=== PATIENT | female | born 1980 | race Caucasian/White ===

== ENCOUNTER 2018-05-24 12:10 | Emergency (ER) | payer BC, SELFPAY ==
[2018-05-24 12:17] VITALS: BP 127/75; PULSE 88; RESP 16; TEMP 36.7; O2SAT 97
[2018-05-24 12:24] LABS: Bilirubin Negative (Negative); Blood Negative (Negative); Clarity Clear; Glucose Negative (Negative); Ketones Negative (Negative); Leukocyte Esterase Negative (Negative); Nitrite Negative (Negative); Urobilinogen 0.2 EU/dL (Up TO 0.2); pH 5.5 (5-8)
--- NOTE | 2018-05-24 12:25 | W.ED.GENAD ---
Discharge Plan Disposition Patient Disposition: HOME Condition: Good Discharge Details Chief Complaint: Urinary Clinical Impression: Dysuria ED Provider: Jeff Leon Home Meds and New Rx's Prescriptions: New ciprofloxacin HCl 500 mg tablet 500 mg PO BID Qty: 14 RF: 0 Discharge Instructions Instructions: Dysuria (ED) Additional Instructions: take the pyridum that was prescribed to you finish the macrobid. If still symptomatic saturday start taking the ciprofloxacin follow up with [facility] if you develop high fevers or severe abdominal pain or back pain return to the emergency department Medical Decision Making 37 yo female comes in with dysuria. She was in [place] and had burning with urination 4 days ago and was placed on macrobid per pt using a telehealth provider, no urine sample was obtained. She states she was feeling better but again started to have burning with urination today so came here. No severe back pain or fevers. Will check UA and urine hcg. She has no fevers or severe back pain to suggest pyelo. She has no vaginal bleeding or d/c per pt so do not feel pelvic indicated at this time ua unremarkable. I did order a urine culture and she is going to finish her macrobid that ends tomorrow and start the pyridium that she was prescribed as well. If she is still symptomatic Saturday she will start cipro. Return precautions given and she is going to arrange f/u with women's wellness Differential Diagnosis uti, cystitis, Lab Data Lab results reviewed: Yes I reviewed the patient's lab results. HPI General Mode of arrival: ambulatory. Date/Time Provider Initiated Documentation: 05/24/18 12:16. Limitations to Documentation: no limitations. Information obtained by: patient. History of Present Illness 37 year old F presents to the emergency department with the chief complaint of dysuria, described as mild, with intensity rated at 2. Quality is described as burning, and it has been constant. No relieving factors improve symptom(s), No exacerbating factors reported . Patient notes no other symptoms.. Related Data Home Medications Medication Instructions Recorded Confirmed ciprofloxacin HCl 500 mg PO BID #14 tab 05/24/18 Previous Rx's Medication Instructions Recorded ciprofloxacin HCl 500 mg PO BID #14 tab 05/24/18 Allergies Allergy/AdvReac Type Severity Reaction Status Date / Time No Known Drug Allergies Allergy Unverified 04/17/17 10:19 General Stated Complaint: Urinary ANNA: 4 Review of Systems Review of Systems All systems reviewed & are unremarkable except as noted in HPI and below Constitutional Denies chills, Denies fever(s) and Denies weakness ENT Denies change in voice Cardiovascular Denies chest pain and Denies dyspnea Respiratory Denies dyspnea Gastrointestinal Denies abdominal pain, Denies nausea and Denies vomiting Integumentary/Breasts Denies rash Neurologic Denies weakness Psychiatric Denies depression Allergic/Immunologic Denies urticaria PFSH Social History Smoking/Tobacco Use Status: Never Exam Const General: no acute distress Orientation: alert HENMT Head: normal to inspection Ears: external ears normal General nose exam: external nose normal Mouth: moist mucous membranes Eyes General: appearance normal, both eyes and all related structures Neck Neck: normal visual inspection Resp Effort & Inspection: normal respiratory effort and able to speak in complete sentences Cardio Rate: regular rate Skin General skin exam: no rashes or lesions noted Neuro General: alert and oriented x3 Extrem General: normal to inspection Psych Mental Status: mental status grossly normal Course Vital Signs Temperature 36.7 C 05/24/18 12:17 Pulse 88 05/24/18 12:17 Respiratory Rate 16 05/24/18 12:17 Blood Pressure 127/75 05/24/18 12:17 Pulse Oximetry 97 05/24/18 12:17 Temperature 36.7 C 05/24/18 12:17 Pulse 88 05/24/18 12:17 Respiratory Rate 16 05/24/18 12:17 Respiratory Effort 05/24/18 12:20 Blood Pressure 127/75 05/24/18 12:17 Pulse Oximetry 97 05/24/18 12:17 Oxygen Delivery Method Room Air 05/24/18 12:17 Oxygen Flow Rate 0 05/24/18 12:17
--- NOTE | 2018-05-24 12:28 | ED.GENADUL_ITS ---
Discharge Plan Disposition Patient Disposition: HOME Condition: Good Discharge Details Chief Complaint: Urinary Clinical Impression: Dysuria ED Provider: Jeff Leon Home Meds and New Rx's Prescriptions: New ciprofloxacin HCl 500 mg tablet 500 mg PO BID Qty: 14 RF: 0 Discharge Instructions Instructions: Dysuria (ED) Additional Instructions: take the pyridum that was prescribed to you finish the macrobid. If still symptomatic saturday start taking the ciprofloxacin follow up with women's wellness if you develop high fevers or severe abdominal pain or back pain return to the emergency department Medical Decision Making 37 yo female comes in with dysuria. She was in [place] and had burning with urination 4 days ago and was placed on macrobid per pt using a telehealth provider, no urine sample was obtained. She states she was feeling better but again started to have burning with urination today so came here. No severe back pain or fevers. Will check UA and urine hcg. She has no fevers or severe back pain to suggest pyelo. She has no vaginal bleeding or d/c per pt so do not feel pelvic indicated at this time ua unremarkable. I did order a urine culture and she is going to finish her macrobid that ends tomorrow and start the pyridium that she was prescribed as well. If she is still symptomatic Saturday she will start cipro. Return precautions given and she is going to arrange f/u with women's wellness Differential Diagnosis uti, cystitis, Lab Data Lab results reviewed: Yes I reviewed the patient's lab results. HPI General Mode of arrival: ambulatory . Date/Time Provider Initiated Documentation: 05/24/18 12:16 . Limitations to Documentation: no limitations . Information obtained by: patient . History of Present Illness 37 year old F presents to the emergency department with the chief complaint of dysuria, described as mild, with intensity rated at 2. Quality is described as burning, and it has been constant. No relieving factors improve symptom(s), No exacerbating factors reported . Patient notes no other symptoms.. Related Data Home Medications Medication Instructions Recorded Confirmed ciprofloxacin HCl 500 mg PO BID #14 tab 05/24/18 Previous Rx's Medication Instructions Recorded ciprofloxacin HCl 500 mg PO BID #14 tab 05/24/18 Allergies Allergy/AdvReac Type Severity Reaction Status Date / Time No Known Drug Allergies Allergy Unverified 04/17/17 10:19 General Stated Complaint: Urinary ANNA: 4 Review of Systems Review of Systems All systems reviewed & are unremarkable except as noted in HPI and below Constitutional Denies chills, Denies fever(s) and Denies weakness ENT Denies change in voice Cardiovascular Denies chest pain and Denies dyspnea Respiratory Denies dyspnea Gastrointestinal Denies abdominal pain, Denies nausea and Denies vomiting Integumentary/Breasts Denies rash Neurologic Denies weakness Psychiatric Denies depression Allergic/Immunologic Denies urticaria PFSH Social History Smoking/Tobacco Use Status: Never Exam Const General: no acute distress Orientation: alert HENMT Head: normal to inspection Ears: external ears normal General nose exam: external nose normal Mouth: moist mucous membranes Eyes General: appearance normal, both eyes and all related structures Neck Neck: normal visual inspection Resp Effort & Inspection: normal respiratory effort and able to speak in complete sentences Cardio Rate: regular rate Skin General skin exam: no rashes or lesions noted Neuro General: alert and oriented x3 Extrem General: normal to inspection Psych Mental Status: mental status grossly normal Course Vital Signs Temperature 36.7 C 05/24/18 12:17 Pulse 88 05/24/18 12:17 Respiratory Rate 16 05/24/18 12:17 Blood Pressure 127/75 05/24/18 12:17 Pulse Oximetry 97 05/24/18 12:17 Temperature 36.7 C 05/24/18 12:17 Pulse 88 05/24/18 12:17 Respiratory Rate 16 05/24/18 12:17 Respiratory Effort 05/24/18 12:20 Blood Pressure 127/75 05/24/18 12:17 Pulse Oximetry 97 05/24/18 12:17 Oxygen Delivery Method Room Air 05/24/18 12:17 Oxygen Flow Rate 0 05/24/18 12:17
== END 2018-05-24 13:20 | disposition home or self-care (01) ==
LOC: ER 13:20
PROVIDERS: Emergency Provider Emergency Medicine
DX: R30.0 Dysuria (principal)
CPT/HCPCS: 81025; 99283; 81003; 87086

== ENCOUNTER 2018-09-05 12:57 | Outpatient (CLI) | payer BC, SELFPAY ==
[2018-09-05 13:38] LABS: HCT 40.5 % (36.0-46.0); HGB 13.2 g/dL (12.0-15.5); Mean Corp. HGB Concentration 32.6 g/dL (32.0-36.0); Mean Corpuscular Volume 85.8 fL (80-95); Mean Platelet Volume 10.7 fL (8.0-11.0); Platelet Count 256 x1000/uL (130-400); RBC 4.72 m/cumm (4.00-5.20); RBC Distribution Width 12.9 % (11.7-14.6); White Blood Cell Count 5.64 k/cumm (4.4-10.8)
[2018-09-05 14:22] LABS: Iron 80 ug/dL (50-175); Total Iron Binding Capacity 283 ug/dL (250-450); Transferrin Sat 28 % (15-50)
[2018-09-05 14:51] LABS: ALT 18 U/L (12-78); AST 12 U/L (15-37); Alkaline Phosphatase 54 U/L (46-116); Anion Gap 5.6 mmol/L (3-11); BUN 20 mg/dL (7-18); Bilirubin, Total 0.9 mg/dL (0.2-1.0); CO2 31.4 mmol/L (21.0-32.0); Calcium 9.2 mg/dL (8.5-10.1); Chloride 102 mmol/L (98-107); Ferritin 46 ng/mL (8-388); Glucose 112 mg/dL (70-100); Potassium 4.1 mmol/L (3.5-5.1); Sodium 139 mmol/L (136-145); TSH (W/Ref FT4) 1.26 uIU/mL (0.358-3.74); Total Protein 7.4 g/dL (6.4-8.2); Vitamin B12 494 pg/mL (193-986)
== END 2018-09-05 13:17 ==
PROVIDERS: PCP Nurse Practitioner; Visit Provider Nurse Practitioner
DX: R53.83 Other fatigue (principal); L65.9 Nonscarring hair loss, unspecified; I10 Essential (primary) hypertension; D64.9 Anemia, unspecified
CPT/HCPCS: 36415; 80053; 85027; 82607; 82728; 83540; 83550; 84443

== ENCOUNTER 2019-01-30 10:10 | Outpatient (CLI) | payer BC, SELFPAY ==
--- NOTE | 2019-01-30 15:31 | DI.MAMMO_ITS ---
SYMPTOMS/DIAGNOSIS: SCREENING, FIBROCYSTIC BREASTS, CYSTIC MASTOPATHY OF BOTH BREASTS, Z12.31, N60.12, N60.11 MAMMOGRAMS: Mammograms were interpreted according to the usual protocol including computer analysis with CAD system, tomosynthesis and C view imaging. Comparison is with the prior examinations. No suspicious masses or microcalcifications are seen. There is no definite evidence of malignancy. IMPRESSION: Negative mammogram. Routine screening is recommended. Category 1, breast density C. MQSA ASSESSMENT OF FINDINGS: Negative. Category 1. Patient will receive a letter notifying them of these results. Bi-RADS category C. The breasts are heterogeneously dense, which may obscure small masses.
== END 2019-01-30 10:30 ==
PROVIDERS: PCP Nurse Practitioner; Visit Provider Nurse Practitioner
DX: N60.11 Diffuse cystic mastopathy of right breast (principal); N60.12 Diffuse cystic mastopathy of left breast; Z12.31 Encounter for screening mammogram for malignant neoplasm of breast
CPT/HCPCS: 77063; 77067

== ENCOUNTER 2019-04-09 09:14 | Outpatient (REF) | payer BC, SELFPAY ==
--- NOTE | 2019-04-09 09:00 | PAPFT_PTH ---
PATIENT: MELISSA WEIR LOC: [facility] U#:[id number] AGE/SX: 38/F ROOM: RE04/09/[address]: Kim Morataya APRN : 1980 BED: DIS: 04/09/2019 SPEC #: [id number] RECD: 04/09/19 13:01 STATUS: DUSTY MELCHOR #: [id number] YAJAIRA: 04/09/19 09:[address]: Kim Morataya DEPT: [facility] Cytology RECD BY: Yaritza Vargas Tissues: 1 - CX/ENDOCX FOR PAP SMEARS Procedures: PAP THIN PREP/UVM Screening HPV DNA PROBE Comments: [id number]
== END 2019-04-09 09:34 ==
LOC: LBN 09:14
PROVIDERS: PCP Nurse Practitioner; Visit Provider Nurse Practitioner
DX: Z12.4 Encounter for screening for malignant neoplasm of cervix (principal); Z11.51 Encounter for screening for human papillomavirus (HPV)
CPT/HCPCS: 88142; 87624

== ENCOUNTER 2020-10-03 01:07 | Emergency (ER) | payer BC, SELFPAY ==
[2020-10-03 01:13] VITALS: BP 141/89; PULSE 80; RESP 16; TEMP 36.2; O2SAT 100
--- NOTE | 2020-10-03 01:24 | ED.GENADUL_ITS ---
Discharge Plan Disposition Patient Disposition: HOME Condition: Stable Discharge Details Clinical Impression: UTI (urinary tract infection) Primary Care Provider: Kim Morataya ED Provider: Jeff Leon Home Meds and New Rx's Prescriptions: New nitrofurantoin monohyd/m-cryst [Macrobid] 100 mg capsule 100 mg PO Q12H 5 Days Qty: 10 RF: 0 Continued ondansetron 4 mg tablet,disintegrating 4 mg PO Q8H PRNRF: 0 Discharge Instructions Instructions: Urinary Tract Infection in Women (ED) Additional Instructions: If symptoms continue in 3 days follow up with your primary care provider if you have fevers, severe back pain or feel more ill return to the emergency department Medical Decision Making 39 yo female states she has had burning with urination for a few hours and frequency. Denies fevers, abdominal pain or back pain. No vomit and feels like prior uti's she's had. No cva tenderness on exam and no abdominal tenderness. Suspect cystitis and no findings on history or exam to suggest pyelo or sepsis, will obtain UA Patient with leukocytes and given symptoms will start her on macrobid and return precautions given Differential Diagnosis Differential Diagnosis: uti, cystitis, pyelo Lab Data Lab results reviewed: Yes I reviewed the patient's lab results. HPI General Mode of arrival: ambulatory . Date/Time Provider Initiated Documentation: 10/03/20 01:09 . Limitations to Documentation: no limitations . Information obtained by: patient . History of Present Illness 39 year old F presents to the emergency department with the chief complaint of burning with urination, described as moderate, Patient started experiencing this hour(s) (2) and it has been constant. No relieving factors improve symptom(s), No exacerbating factors reported . Patient notes no other symptoms.. Patient did receive the following treatments prior to arrival, none Related Data Home Medications Medication Instructions Recorded Confirmed ondansetron 4 mg disintegrating 4 mg PO Q8H PRN 10/09/19 tablet nitrofurantoin monohyd/m-cryst 100 mg PO Q12H 5 Days #10 cap 10/03/20 [Macrobid] Previous Rx's Medication Instructions Recorded nitrofurantoin monohyd/m-cryst 100 mg PO Q12H 5 Days #10 cap 10/03/20 [Macrobid] Allergies Allergy/AdvReac Type Severity Reaction Status Date / Time No Known Drug Allergies Allergy Verified 10/03/20 01:19 General Stated Complaint: Urinary ANNA: 4 Review of Systems All systems reviewed & are unremarkable except as noted in HPI and below Constitutional Constitutional: Denies chills and Denies fever(s) Cardiovascular Cardiovascular: Denies chest pain and Denies dyspnea Respiratory Respiratory: Denies cough and Denies dyspnea Gastrointestinal Gastrointestinal: Denies abdominal pain, Denies nausea and Denies vomiting PFSH Medical History (Updated 10/03/20 @ 01:42 by Jeff Leon MD) Anxiety Surgical History (Updated 05/11/20 @ 11:46 by Valerie Caban RN) Delivery by section (03/28/20) S/P excision of fibroadenoma of breast Social History (Updated 04/09/19 @ 08:32 by Marily Ortiz RN) Smoking/Tobacco Use Status: Never Smoking risk assessment performed?: Yes Alcohol Intake: current Alcohol Intake frequency: a few times a week Alcohol type: beer Drug use: Never Substance use type: does not use Adopted: No Caregiver/Support person: No Foster care: No Household members: spouse and children Housing: house Number of Children: 2 Communication Needs: Corrective Lenses Education Level: master's degree Do you need help understanding health information?: Never current occupation: Interactive Developer, [employer] Pets and animals: Yes Pets and animals: dog(s) Sexually active: Yes Current gender identity: female What is your relationship status?: Panel score (0-1 are the most socially isolated patients): 1 What type of physical activity do you participate in: walking and other Details: hiking Duration: 45-60 minutes/day Frequency: 3-4 times per week Alix/Congregation: None Special alix needs: No Agree to transfusion: Yes Seatbelt use: always Helmet use: Yes Drive intox or ride w/intox local company truck driver: No Working smoke detector in home: Yes Fire extinguisher in home: No Carbon monox detector in home: Yes Firearms in home: No Do you feel safe at home: Yes Do you feel safe in your relationship?: Yes Female Reproductive History Menstrual control method: none History History 2 Para 2 Hx # Term Pregnancies Multiple births Hx # Pregnancies Ectopic pregnancies AB induced Hx Number of Living Children AB spontaneous Exam Const General: no acute distress Orientation: alert HENMT Head: normal to inspection Ears: external ears normal General nose exam: external nose normal Mouth: moist mucous membranes Eyes General: appearance normal, both eyes and all related structures Neck Neck: normal visual inspection Resp Effort & Inspection: normal respiratory effort and able to speak in complete sentences Cardio Rate: regular rate General: No CVA tenderness Skin General skin exam: no rashes or lesions noted Neuro General: patient alert and patient oriented x3 Extrem General: normal to inspection Psych Mental Status: mental status grossly normal Course Vital Signs Vital signs: Vital Signs Temperature 36.2 C L 10/03/20 01:13 Pulse 80 10/03/20 01:13 Respiratory Rate 16 10/03/20 01:13 Blood Pressure 141/89 H 10/03/20 01:13 Pulse Oximetry 100 10/03/20 01:13 Temperature 36.2 C L 10/03/20 01:13 Temperature Source Skin 10/03/20 01:13 Pulse 80 10/03/20 01:13 Respiratory Rate 16 10/03/20 01:13 Blood Pressure 141/89 H 10/03/20 01:13 Blood Pressure Position Standing 10/03/20 01:13 Pulse Oximetry 100 10/03/20 01:13 Oxygen Delivery Method Room Air 10/03/20 01:13 Oxygen Flow Rate 0 10/03/20 01:13 Pain Level 4 10/03/20 01:13 Lab/Test Results Lab/Test Results: 10/03/20 01:20 Urine - Clean Catch Urine Culture - Pending
[2020-10-03 01:32] LABS: Bilirubin Negative (Negative); Blood Large (Negative); Clarity Cloudy (Clear); Glucose Negative (Negative); Ketones Negative (Negative); Leukocyte Esterase Small (Negative); Nitrite Negative (Negative); Urobilinogen 0.2 EU/dL (Up TO 0.2); pH 5.5 (5-8)
[2020-10-03 01:35] LABS: C & S Indicated? C&S Done As Ordered
[2020-10-03 01:41] LABS: RBC >50 HPF (0-2)
[2020-10-03] MEDS: MacroBID 100 MG CAP PO (01:44)
== END 2020-10-03 01:55 | disposition home or self-care (01) ==
LOC: ER 01:48
PROVIDERS: Emergency Provider Emergency Medicine; PCP Nurse Practitioner
DX: N39.0 Urinary tract infection, site not specified (principal); B96.20 Unspecified Escherichia coli [E. coli] as the cause of diseases classified elsewhere; Z87.440 Personal history of urinary (tract) infections
CPT/HCPCS: 81025; 87077; 99283; 81003; 81015; 87086; 87186